=== PATIENT | female | born 1975 | race Caucasian/White ===

== ENCOUNTER 2017-09-07 14:11 | Emergency (ER) | payer MEDICAID, MEDICARE ==
--- NOTE | 2017-09-07 15:16 | ERNOTE ---
Integumentary HPI - General Presenting Symptoms: abscess Time Seen by Provider: 09/07/17 14:39 Source: patient Exam Limitations: no limitations - Immun/Allergies/Home Medications Immunizations: IMMUNIZATION HX Immunizations Up to Date Yes Allergies/Adverse Reactions: Allergies Allergy/AdvReac Type Severity Reaction Status Date / Time NSAIDS (Non-Steroidal Allergy Nausea Verified 09/07/17 14:27 Anti-Inflamma Home Medications: HOME MEDICATIONS Adalimumab [Humira] 80 mg SQ Q7D 09/07/17 [Last Taken Unknown] Dextroamphetamine/Amphetamine [Adderall 20 mg Tablet] 20 mg PO TID 09/07/17 [ Last Taken Unknown] Diazepam [Valium] 10 mg PO TID 09/07/17 [Last Taken Unknown] Levothyroxine Sodium [Levoxyl] 200 mcg PO DAILY 09/07/17 [Last Taken Unknown] Mupirocin [Bactroban] 1 appl TP BID #22 gm 09/07/17 [Last Taken Unknown] Omeprazole Magnesium [Prilosec] 2.5 mg PO DAILY 09/07/17 [Last Taken Unknown] Oxybutynin Chloride [Ditropan Xl] 5 mg PO BID 09/07/17 [Last Taken Unknown] Prazosin HCl [Minipress] 2 mg PO HS 09/07/17 [Last Taken Unknown] Sulfamethoxazole/Trimethoprim [Bactrim Ds] 1 tab PO BID #20 tab 09/07/17 [Last Taken Unknown] traMADol HCL [Ultram] 50 mg PO QID PRN #20 tablet 09/07/17 [Last Taken Unknown] traZODone HCL [Trazodone HCl] 100 mg PO HS 09/07/17 [Last Taken Unknown] - Pain Pain Score: 6 - History of Present Illness Narrative: Patient complains of several cutaneous abscesses 100 left breast and one on the right butt cheek. Patient thought the one on the butt cheek was a hemorrhoid however on closer examination it appears to be another abscess. Location: Reports: other - as noted Quality: Reports: painful Severity: moderate Exposure: Reports: other - probable staph epidermidis versus community-acquired staph aureus Modifying Factors - (Improves): Reports: nothing Modifying Factors - (Worsens): Reports: nothing Associated Symptoms: Reports: denies symptoms Review of Systems - Review of Systems Constitutional: Present: See HPI EYE: Present: no symptoms reported ENT: Present: no symptoms reported Respiratory: Present: no symptoms reported Cardiology: Present: no symptoms reported Gastrointestinal/Abdominal: Present: no symptoms reported Genitourinary: Present: no symptoms reported Musculoskeletal: Present: no symptoms reported Skin: Present: other - abscesses as noted Neurological: Present: no symptoms reported Endocrine: Present: no symptoms reported Hematologic/Lymphatic: Present: no symptoms reported Psych: Present: no symptoms reported - Patient's Past Medical History Patient History - Medical: Anxiety, Hypothyroidism, Obesity Patient History - Cardiac/Respiratory: No pertinent hx Patient History - Cancer: Cervical LMP (females 10-50): Menopausal - Social History Living Situations: home Psych History: Hx of Anxiety, Hx of Bipolar Disorder Alcohol Use: none Drug Use: none - Immunizations Immunizations Up to Date: Yes Physical Exam - Physical Exam General Appearance: Present: wd/wn, alert, moderate distress Head Exam: Present: normal inspection Eye Exam: Normal inspection: bilateral, PERRL: bilateral Ears, Nose, Throat: Present: normal ENT inspection, H, normal pharynx Neck: Present: normal inspection, nontender Respiratory: Present: no respiratory distress, normal breath sounds, no accessory muscle use, chest nontender, lungs clear Cardiovascular/Chest: Present: regular rate, rhythm, no murmur, normal peripheral pulses Gastrointestinal/Abdominal: Present: normal bowel sounds, nontender, nondistended, soft, no organomegaly Rectal Exam: Present: deferred Back Exam: Present: normal inspection, normal range of motion Extremity Exam: Present: normal inspection, non-tender, no edema, normal range of motion Neurological Exam: Present: alert, oriented, normal mood/affect Skin Exam: Present: other - small draining abscess under the left breast and larger abscess on the right buttock Lymphatic Exam: Present: no adenopathy ED Progress - Vital Signs Patient's Vital Signs:: I have reviewed the patient's vital signs. Vital Signs: Vital Signs 09/07/17 14:14 Temperature 36.8 C Pulse Rate 68 Respiratory 14 Rate Blood Pressure 119/70 O2 Sat by Pulse 100 Oximetry - Progress/Reassessment Chief Complaint: Abscess Procedures Right Buttock Anesthesia: 1% Lidocaine Blade Size: 11 Findings and Actions: purulent drainage moderate Complications: Pt ron procedure well Plan - Plan Plan: Patient be started on antibiotics, will be instructed to use Hibiclens soap and we will give the patient a few days of tramadol to help with pain relief. Departure Clinical Impression: Cutaneous abscess Qualifiers: Site of cutaneous abscess: buttock Qualified Code(s): L02.31 - Cutaneous abscess of buttock - Departure Disposition: Home self-care Condition: Good Instructions: Abscess, [id number], Incision and Drainage, Care After Additional Instructions: 1. Start using Hibiclens soap until all the lesions are cleared up and then once a week after that 2. May she also put the Bactroban in the nose on the inside Referrals: Bolivar Marcos DO [Primary Care Provider] - Prescriptions: Mupirocin [Bactroban] 1 appl TP BID #22 gm Sulfamethoxazole/Trimethoprim [Bactrim Ds] 1 tab PO BID #20 tab traMADol HCL [Ultram] 50 mg PO QID PRN #20 tablet PRN Reason: Moderate Pain (Pain Scale 4-6)
[2017-09-07 15:46] VITALS: BP 125/69
== END 2017-09-07 15:59 | disposition home or self-care (01) ==
LOC: ER 14:11
PROC: 0H98XZZ Drainage of Buttock Skin, External Approach (ICD-10-PCS; principal; 2017-09-07)
DX: L02.31 Cutaneous abscess of buttock; E03.9 Hypothyroidism, unspecified

== ENCOUNTER 2017-10-08 11:36 | Emergency (ER) | payer MEDICARE, MEDICAID ==
[2017-10-08] MEDS ORDERED: ORPHENADRINE CITRATE 30 MG/ML VIAL IV ONE (12:07)
[2017-10-08] MEDS ORDERED: CARISOPRODOL 350 MG TABLET PO PRN (12:21)
[2017-10-08 12:29] LABS: Hemoglobin 14.9 gm/dL (12.5-16.0); Mean Cell Volume 96.2 fl (78-100); Mean Corpuscular Hemoglobin 33.3 pg (27-31); Mean Corpuscular Hgb Conc 34.7 g/dl (32-36); Mean Platelet Volume 9.3 fl (6.0-9.5); Neutrophil # 4.9 K/mm3 (1.3-6.0); Neutrophil % 55.6 % (42-75.0); Platelet Count 270 K/mm3 (150-450); Red Blood Count 4.47 M/mm3 (4.2-5.4); Red Cell Distribution Width 13.3 % (11.5-14.0); White Blood Count 8.9 K/mm3 (4.0-10.5)
[2017-10-08] MEDS ORDERED: CARISOPRODOL 350 MG TABLET ONE (12:31)
[2017-10-08 12:34] LABS: Anion Gap 12.9 mmol/L (6.8-13.8); BUN/Creatinine Ratio 14.9 (9.0-21.6); Calcium * 8.9 mg/dL (7.9-10.9); Estimated Creat Clear 67.2; Potassium 3.9 mmol/L (3.4-4.6)
[2017-10-08 12:43] LABS: Urine Bilirubin Negative (NEGATIVE); Urine Blood Negative /ul (NEGATIVE); Urine Ketone 5 mg/dL (NEGATIVE); Urine Nitrite Negative (NEGATIVE); Urine Protein Negative (NEGATIVE); Urine Specific Gravity 1.025 SP.GR. (1.005-1.010); Urine Urobilinogen Normal (NORMAL); Urine pH 5.5 pH (5.0-7.0)
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
[2017-10-08 12:52] LABS: Urine Amorphous Sediment Few - 1+ (NONE-FEW); Urine Appearance Clear; Urine Bacteria None Seen; Urine Color Yellow; Urine RBC None Seen /hpf (0-5); Urine WBC None Seen /hpf (0-5)
[2017-10-08 13:49] VITALS: BP 127/87
== END 2017-10-08 13:50 | disposition short-term general hospital (02) ==
LOC: ER 11:36
DX: M54.9 Dorsalgia, unspecified; Z85.41 Personal history of malignant neoplasm of cervix uteri; M62.81 Muscle weakness (generalized); E03.9 Hypothyroidism, unspecified; F31.9 Bipolar disorder, unspecified; F17.200 Nicotine dependence, unspecified, uncomplicated